=== PATIENT | female | born 1955 | race Asian ===

== ENCOUNTER 2016-10-25 18:34 | Emergency (ER) | payer OTHER ==
[2016-10-25] MEDS ORDERED: Nitroglycerin TAB 0.4 MG* 0.4 MG TAB ONE (19:12)
[2016-10-25] MEDS ORDERED: Heparin for STEMI(*) 5,000 UNITS/ML 1 ML VIAL IV ONE (19:13)
[2016-10-25] MEDS ORDERED: nitroGLYCERIN DRIP* 0 ML ONE ×2 (19:13→19:31)
[2016-10-25] MEDS ORDERED: Aspirin Low Dose CHEW TAB* 81 MG ONE (19:13)
[2016-10-25] MEDS ORDERED: Ticagrelor* 90 MG TAB PO ONE (19:14)
[2016-10-25] MEDS ORDERED: Aspirin Low Dose CHEW TAB* 81 MG PO ONE (19:17)
[2016-10-25 19:30] LABS: Hematocrit 38 % (35-47); Mean Corpuscular HGB Conc 34 g/dl (31-36); Mean Corpuscular Hemoglobin 30 pg (27-31); Mean Corpuscular Volume 87 fL (80-97); Mean Platelet Volume 9 um3 (7.4-10.4); Red Cell Distribution Width 13 % (10.5-15); White Blood Count 5.8 10^3/ul (3.5-10.8)
[2016-10-25] MEDS ORDERED: Heparin 2 UNITS/ML IVPREMIX* 0 ML IV ONE (19:31)
[2016-10-25] MEDS ORDERED: Midazolam* 1 MG/ML 5 ML VIAL (5 MG) ONE (19:31)
[2016-10-25] MEDS ORDERED: Iohexol 350 (CONTRAST) 200 ML MDV IV ONE (19:31)
[2016-10-25] MEDS ORDERED: Lidocaine 1% INJ* 10 MG/ML 30 ML SDV ONE (19:31)
[2016-10-25] MEDS ORDERED: fentaNYL* 50 MCG/ML 2 ML VIAL (100 MCG VIAL) ONE (19:31)
[2016-10-25 19:44] LABS: Albumin 4.3 g/dL (3.2-5.2); BUN/Creatinine Ratio 21.5 (8-20); Calcium 9.7 mg/dL (8.6-10.3); EGFR African American 119.2 (>60); EGFR Non-African American 92.7 (>60); Globulin 2.6 g/dL (2-4); Potassium 3.6 mmol/L (3.5-5.0); Total Bilirubin 0.5 mg/dL (0.2-1.0); Total Protein 6.9 g/dL (6.4-8.9)
--- NOTE | 2016-10-25 19:57 | RAD ---
Indication: LEFT side chest wall pain since Saturday night with progressive worsening. Comparison: None. Technique: Upright AP 1928 hours Report: Percutaneous cardiac pacemaker leads. Clear lungs and pleural spaces. Negative for pneumothorax. Upper normal heart size. Unremarkable central pulmonary vasculature. No rib fracture evident. IMPRESSION: No evidence for acute intrathoracic disease.
[2016-10-25] MEDS ORDERED: Ketorolac INJ* 30 MG/ML 1 ML VIAL IM ONE (20:11)
[2016-10-25] MEDS ORDERED: Ketorolac INJ* 30 MG/ML 1 ML VIAL IV PUSH ONE (21:26)
[2016-10-25 22:57] VITALS: BP 125/82
--- NOTE | 2016-10-26 11:19 | ED ---
Ferny Miller Adam, scribed for Robbie Baldwin MD on 10/25/16 at 1945 . HPI Chest Pain - HPI Summary HPI Summary: Pt is a 61 year old female presenting with CP. She states that the pain is located in her left lower ribcage and is worse when she turns her body. The pain set on 3 nights ago and has been intermittent since. PMHx of HTN. No Hx of DM or HLD. FMHx of cardiac disease. - History of Current Complaint Chief Complaint: EDChestWallPain Hx Obtained From: Patient Onset/Duration: Started Days Ago, Atraumatic, Still Present Timing: Intermittent Initial Severity: Moderate Current Severity: Moderate Chest Pain Location: Left Lateral Chest Pain Radiates: No Aggravating Factor(s): Movement - Turning body Alleviating Factor(s): Nothing Associated Signs and Symptoms: Positive: Negative - Allergy/Home Medications Allergies/Adverse Reactions: Allergies Allergy/AdvReac Type Severity Reaction Status Date / Time No Known Allergies Allergy Verified 05/12/14 10:03 PMH/Surg Hx/FS Hx/Imm Hx Endocrine/Hematology History: Denies: Hx Diabetes Cardiovascular History: Reports: Hx Hypertension Denies: Hx Hypercholesterolemia Infectious Disease History: No Infectious Disease History: Denies: Traveled Outside the [place] in Last 30 Days - Family History Known Family History: Positive: Cardiac Disease - Social History Occupation: Employed Full-time Lives: With Family - Alcohol Use: Rare Hx Substance Use: No Substance Use Type: Reports: None Hx Tobacco Use: No Smoking Status (MU): Never Smoked Tobacco Review of Systems Positive: Chest Pain Positive: Myalgia - Right lower rib pain All Other Systems Reviewed And Are Negative: Yes Physical Exam Triage Information Reviewed: Yes Vital Signs On Initial Exam: Initial Vitals Temp Pulse Resp BP Pulse Ox 99.3 F 70 20 155/96 99 10/25/16 18:44 10/25/16 18:44 10/25/16 18:44 10/25/16 18:44 10/25/16 18:44 Vital Signs Reviewed: Yes - Juliaetta Coma Scale Coma Scale Total: 15 Diagnostics - Vital Signs Vital Signs Temp Pulse Resp BP Pulse Ox 10/25/16 19:11 66 99 10/25/16 19:09 152/93 10/25/16 18:44 99.3 F 70 20 155/96 99 - Laboratory Lab Results: Lab Results 10/25/16 10/25/16 Range/Units 19:20 19:20 WBC 5.8 (3.5-10.8) 10^3/ul RBC 4.40 (4.0-5.4) 10^6/ul Hgb 13.0 (12.0-16.0) g/dl Hct 38 (35-47) % MCV 87 (80-97) fL MCH 30 (27-31) pg MCHC 34 (31-36) g/dl RDW 13 (10.5-15) % Plt Count 187 (150-450) 10^3/ul MPV 9 (7.4-10.4) um3 Neut % (Auto) 48.0 (38-83) % Lymph % (Auto) 39.8 (25-47) % [place] % (Auto) 6.3 (1-9) % Eos % (Auto) 5.1 (0-6) % Baso % (Auto) 0.8 (0-2) % Absolute Neuts (auto) 2.8 (1.5-7.7) 10^3/ul Absolute Lymphs (auto) 2.3 (1.0-4.8) 10^3/ul Absolute Monos (auto) 0.4 (0-0.8) 10^3/ul Absolute Eos (auto) 0.3 (0-0.6) 10^3/ul Absolute Basos (auto) 0 (0-0.2) 10^3/ul Absolute Nucleated RBC 0.01 10^3/ul Nucleated RBC % 0.1 INR (Anticoag Therapy) 0.87 L (0.89-1.11) APTT 28.3 (26.0-36.3) seconds Result Diagrams: 10/25/16 19:20 10/25/16 19:20 Lab Statement: Any lab studies that have been ordered have been reviewed, and results considered in the medical decision making process. - Radiology CXR Radiology Interpretation Completed By: Radiologist - IMPRESSION: NO EVIDENCE FOR ACUTE INTRATHORACIC DISEASE. - EKG 18:49 Cardiac Rate: NL - 63 BPM EKG Rhythm: Sinus Rhythm EKG Interpretation: ST elevations in V2 & V3 w/o any reciprocal changes 18:57 Cardiac Rate: NL - 63 BPM EKG Rhythm: Sinus Rhythm EKG Interpretation: ST elevations but it looks like J point w/o any reciprocal changes - Additional Comments Diagnostic Additional Comments: Troponin I - 0.00 (@ 19:20) Chest Pain Course/Dx - Course Course Of Treatment: Pt is a 61 year old female presenting with CP. She states that the pain is located in her left lower ribcage and is worse when she turns her body. The pain set on 3 nights ago and has been intermittent since. PMHx of HTN. No Hx of DM or HLD. FMHx of cardiac disease. Assessment/Plan: BW is WNL. Troponin is 0.00. CXR shows no acute intrathoracic disease. First EKG and second EKG show that the pt had ST elevations in V2 and V3. Therefore I called a STEMI code. I interviewed the pt better with the help of the and they indicated that the pain is actually in the ribcage area , is sharp, and increases with movement of the upper extermity and turning to the left. There is no pain when the patient is still. I did a second troponin and it was 0.00. Therefore we cancelled the STEMI code. We obtained an old EKG from Dr. Goodrich and the EKG is similar to a previous EKG done on 01/07/14. In the ED course the pt was given Toradol and her symptoms improved. Therefore I believe that the pt has chest wall pain. The pt is feeling better and is comfortable. Therefore she will be discharged home with follow-up with PCP. She was also advised that if she develops any rash she should return to the ED to r/o Herpes Zoster. - Diagnoses Provider Diagnoses: Atypical chest pain Discharge - Discharge Plan Condition: Stable Disposition: HOME Prescriptions: Naproxen TAB* [Naprosyn TAB*] 500 mg PO Q8H PRN #30 tab PRN Reason: Pain Patient Education Materials: Chest Pain (ED) Referrals: Mariposa Marquez MD [Primary Care Provider] - 2 Days Additional Instructions: Follow up with Dr. Marquez. The documentation as recorded by the Ferny sheets Adam accurately reflects the service I personally performed and the decisions made by me, Robbie Baldwin MD.
== END 2016-10-25 22:58 | disposition home or self-care (01) ==
LOC: ED 18:34
DX: R07.89 Other chest pain (principal); R07.81 Pleurodynia
CPT/HCPCS: 36415; 71010; 80053; 82550; 82553; 83605; 83721; 83880; 84484; 85025; 85610; 85730; 93005; 96372; 99283; A9270-GY; J1644; J1885; J2250; J3010

== ENCOUNTER 2016-10-26 16:12 | Emergency (ER) | payer OTHER ==
[2016-10-26 16:19] VITALS: BP 183/82
[2016-10-26] MEDS ORDERED: ValACYclovir (*) 1 GM TAB PO ONE (18:10)
== END 2016-10-26 19:02 | disposition home or self-care (01) ==
LOC: ED 16:12
DX: R21 Rash and other nonspecific skin eruption (principal)
CPT/HCPCS: 99282

== ENCOUNTER 2018-11-03 09:01 | Emergency (ER) | payer OTHER ==
[2018-11-03 09:26] VITALS: BP 142/83
--- NOTE | 2018-11-03 10:47 | UC ---
Truncal Trauma HPI - HPI Summary HPI Summary: 63-year-old female comes in with a chief complaint of right lower lateral anterior chest pain. 3 days ago on October 31, 2018 patient slipped and fell on the ice at work landing primarily on her back. She had brief episode back pain but primarily most of the pain was right lower lateral anterior chest. Pain is slightly worse with taking a deep breath or pushing on the area or she lays on it tried to sleep at night. Denies any shortness of breath or fevers or chills. Denies any abdominal pain. She been able to eat and drink normally she reports normal urination normal bowels. Has not seen any blood in the urine. She is not taking any [id number] medications. - History Of Current Complaint Chief Complaint: UCGeneralIllness Stated Complaint: FELL RIB INJURY Time Seen by Provider: 11/03/18 09:40 Pain Intensity: 6 - Allergies/Home Medications Allergies/Adverse Reactions: Allergies Allergy/AdvReac Type Severity Reaction Status Date / Time No Known Allergies Allergy Verified 11/03/18 09:27 PMH/Surg Hx/FS Hx/Imm Hx Previously Healthy: Yes Cardiovascular History: Hypertension GI/ History: Gastroesophageal Reflux - Surgical History Surgical History: None - Family History Known Family History: Positive: Cardiac Disease - Social History Alcohol Use: Rare Substance Use Type: None Smoking Status (MU): Never Smoked Tobacco Review of Systems All Other Systems Reviewed And Are Negative: Yes Constitutional: Positive: Negative Skin: Positive: Negative Eyes: Positive: Negative ENT: Positive: Negative Respiratory: Positive: Negative Cardiovascular: Positive: Chest Pain Gastrointestinal: Positive: Negative Genitourinary: Positive: Negative Motor: Positive: Negative Neurovascular: Positive: Negative Musculoskeletal: Positive: Other: - SEE HPI Neurological: Positive: Negative Psychological: Positive: Negative Is Patient Immunocompromised?: No Physical Exam Triage Information Reviewed: Yes Appearance: Well-Appearing, No Pain Distress, Well-Nourished Vital Signs: Initial Vital Signs Temp 99.3 F 11/03/18 09:23 Pulse 70 11/03/18 09:23 Resp 18 11/03/18 09:23 BP 142/83 11/03/18 09:23 Pulse Ox 100 11/03/18 09:23 Vital Signs Reviewed: Yes Eye Exam: Normal Eyes: Positive: Conjunctiva Clear Neck exam: Normal Neck: Positive: Supple Respiratory: Positive: Lungs clear, Normal breath sounds, No respiratory distress, Other: - pATIENT IS TENDER TO PALPATION she is tender to palpation lateral anterior ribs. Abdomen is soft and nontender. Cardiovascular Exam: Normal Cardiovascular: Positive: RRR Abdomen Description: Positive: Nontender, Soft Bowel Sounds: Positive: Present Musculoskeletal Exam: Normal Musculoskeletal: Positive: Strength Intact, ROM Intact Neurological Exam: Normal Neurological: Positive: Alert, Muscle Tone Normal Psychological Exam: Normal Psychological: Positive: Age Appropriate Behavior Skin Exam: Normal Truncal Trauma Course/Dx - Course Course Of Treatment: We discussed treatment with ibuprofen and incentive spirometer. Patient declined incentive spirometer at this time. Patient will use ibuprofen as needed. Follow-up with healthcare provider as needed get seen sooner if worse. No evidence of any abdominal injury today. I did fill out a form for her work stating that she can return to work without restrictions today July 06, 2019. - Differential Dx/Diagnosis Provider Diagnosis: Contusion of rib on right side Discharge - Sign-Out/Discharge Documenting (check all that apply): Patient Departure All imaging exams completed and their final reports reviewed: Yes - Discharge Plan Condition: Stable Disposition: HOME Patient Education Materials: Rib Contusion (ED) Referrals: Mariposa Marquez MD [Primary Care Provider] - Additional Instructions: FOLLOW UP WITH YOUR DOCTOR IF NOT COMPLETELY IMPROVED. TAKE IBUPROFEN 600MG EVERY 6 HOURS NEEDED FOR PAIN. GET RECHECKED FOR ANY WORSENING OF YOUR CONDITION; PAIN, FEVER, SHORTNESS OF BREATH, YOU FEEL ILL OR QUESTIONS OR CONCERNS. - Billing Disposition and Condition Condition: STABLE Disposition: Home
== END 2018-11-03 10:56 | disposition home or self-care (01) ==
LOC: UCEAST 09:01
DX: S20.211A Contusion of right front wall of thorax, initial encounter (principal); I10 Essential (primary) hypertension; W00.0XXA Fall on same level due to ice and snow, initial encounter; Y92.9 Unspecified place or not applicable
CPT/HCPCS: 99211; G0463